=== PATIENT | female | born 1985 | race American Indian/Alaskan Native ===

== ENCOUNTER 2016-12-20 19:33 | Emergency (ER) | payer MEDICAID ==
[2016-12-20 19:58] VITALS: BP 126/84
[2016-12-20] MEDS ORDERED: MOTRIN PO ONE (22:26)
[2016-12-20] MEDS ORDERED: BACTRIM DS PO ONE (22:26)
--- NOTE | 2016-12-20 22:33 | Emergency Department Report ---
- General Chief complaint: Abdominal Pain Stated complaint: BOIL RIGHT ARM Time Seen by Provider: 12/20/16 22:26 Source: patient Mode of arrival: Ambulatory Limitations: No Limitations - History of Present Illness Initial comments: 31-year-old female past medical history recurrent abscesses presents with complaint of approximately 3 days of right-sided axillary abscess. Patient denies fevers or chills. States that the skin in her right armpit is swollen and uncomfortable and she sees a visible abscess head. Patient states she has had abscesses in her groin and buttock region in the past. Denies any other symptoms. No visible drainage as of yet as per patient. MD complaint: abscess/boil Onset/Timin -: days(s) Location: RUE Severity: moderate Severity scale (0 -10): 7 Quality: aching Consistency: constant Improves with: immobilization Associated symptoms: denies other symptoms Treatments Prior to Arrival: none - Related Data Previous Rx's Medication Instructions Recorded Last Taken Type Acetaminophen/Codeine [Tylenol 1 tab PO Q6H PRN #3 tab 12/20/16 Unknown Rx /Codeine # 3 tab] Cephalexin [Keflex] 500 mg PO Q12HR #14 cap 12/20/16 Unknown Rx Ibuprofen [Motrin] 600 mg PO Q8H PRN #30 tablet 12/20/16 Unknown Rx Sulfamethoxazole/Trimethoprim 1 each PO BID #14 tablet 12/20/16 Unknown Rx [Bactrim DS TAB] Allergies Allergy/AdvReac Type Severity Reaction Status Date / Time iodine Allergy Unknown Verified 12/20/16 20:07 Abscess Boil HPI - HPI Chief Complaint: Abdominal Pain Stated Complaint: BOIL RIGHT ARM Time Seen by Provider: 12/20/16 22:26 Home Medications: Previous Rx's Medication Instructions Recorded Last Taken Type Acetaminophen/Codeine [Tylenol 1 tab PO Q6H PRN #3 tab 12/20/16 Unknown Rx /Codeine # 3 tab] Cephalexin [Keflex] 500 mg PO Q12HR #14 cap 12/20/16 Unknown Rx Ibuprofen [Motrin] 600 mg PO Q8H PRN #30 tablet 12/20/16 Unknown Rx Sulfamethoxazole/Trimethoprim 1 each PO BID #14 tablet 12/20/16 Unknown Rx [Bactrim DS TAB] Allergies/Adverse Reactions: Allergies Allergy/AdvReac Type Severity Reaction Status Date / Time iodine Allergy Unknown Verified 12/20/16 20:07 ED Review of Systems ROS: Stated complaint: BOIL RIGHT ARM Other details as noted in HPI Constitutional: denies: chills, fever Eyes: denies: eye pain, eye discharge, vision change ENT: denies: ear pain, throat pain Respiratory: denies: cough, shortness of breath, wheezing Cardiovascular: denies: chest pain, palpitations Endocrine: no symptoms reported Gastrointestinal: denies: abdominal pain, nausea, diarrhea Genitourinary: denies: urgency, dysuria, discharge Musculoskeletal: denies: back pain, joint swelling, arthralgia Skin: denies: rash, lesions Neurological: denies: headache, weakness, paresthesias Psychiatric: denies: anxiety, depression Hematological/Lymphatic: denies: easy bleeding, easy bruising ED Past Medical Hx - Past Medical History Previous Medical History?: Yes Hx Asthma: Yes - Surgical History Additional Surgical History: x2 - Social History Smoking Status: Current Some Day Smoker Substance Use Type: Alcohol - Medications Home Medications: Home Medications Medication Instructions Recorded Confirmed Last Taken Type Acetaminophen/Codeine [Tylenol 1 tab PO Q6H PRN #3 tab 12/20/16 Unknown Rx /Codeine # 3 tab] Cephalexin [Keflex] 500 mg PO Q12HR #14 cap 12/20/16 Unknown Rx Ibuprofen [Motrin] 600 mg PO Q8H PRN #30 tablet 12/20/16 Unknown Rx Sulfamethoxazole/Trimethoprim 1 each PO BID #14 tablet 12/20/16 Unknown Rx [Bactrim DS TAB] ED Physical Exam - General Limitations: No Limitations General appearance: alert, in no apparent distress - Head Head exam: Present: atraumatic, normocephalic - Eye Eye exam: Present: normal appearance, PERRL, EOMI - ENT ENT exam: Present: mucous membranes moist - Neck Neck exam: Present: normal inspection - Respiratory Respiratory exam: Present: normal lung sounds bilaterally. Absent: respiratory distress - Cardiovascular Cardiovascular Exam: Present: regular rate, normal rhythm. Absent: systolic murmur, diastolic murmur, rubs, gallop - GI/Abdominal GI/Abdominal exam: Present: soft, normal bowel sounds - Extremities Exam Extremities exam: Present: normal inspection - Back Exam Back exam: Present: normal inspection - Neurological Exam Neurological exam: Present: alert, oriented X3, CN II-XII intact, normal gait - Psychiatric Psychiatric exam: Present: normal affect, normal mood - Skin Skin exam: Present: warm, dry, intact, normal color. Absent: rash - Expanded Skin Exam Expanded Type of lesion: Present: abscess Distribution of rash: other (right axilla) Description of rash: Present: tenderness, swelling, fluctuant 1 - right axillary abscess w/ some surrounding erythema ED Course Vital Signs 12/20/16 12/20/16 12/20/16 19:54 19:57 20:04 Temperature 98.7 F 98.7 F 98.7 F Pulse Rate 82 82 Respiratory 18 18 19 Rate Blood Pressure 126/84 126/84 Blood Pressure 126/84 [Right] O2 Sat by Pulse 99 99 Oximetry - I & D Right Dermal Type of Procedure: Simple Site: right axilla Blade Size: 11 I & D Procedure: betadine prep, gauze wick placed Progress: Area infiltrated with lidocaine 1% without epinephrine. A stab incision made overlying central fluctuant area of abscess. Moderate amount of purulent drainage approximately 4-5 mL. Wound culture collected and sent. Wound packed with half-inch iodoform gauze approximately 4 inches. minimal bleeding. Procedure tolerated well with minimal pain. ED Medical Decision Making - Medical Decision Making A/P: right axillary abscess 1- motrin 600mg prn 2- Bactrim DS twice a day 7 days, Keflex twice a day 7 days 3- recheck in the ED 48-72 hours 4- wound culture sent Critical care attestation.: If time is entered above; I have spent that time in minutes in the direct care of this critically ill patient, excluding procedure time. ED Disposition Clinical Impression: Abscess of axilla, right Disposition: TO HOME OR SELFCARE Is pt being admited?: No Does the pt Need Aspirin: No Condition: Stable Instructions: Cellulitis (ED), Abscess Incision and Drainage (ED), Acute Wound Care (ED), Abscess (ED) Additional Instructions: Please return to the ED in 48-72 hours for wound check and removal of packing Prescriptions: Acetaminophen/Codeine [Tylenol /Codeine # 3 tab] 1 tab PO Q6H PRN #3 tab PRN Reason: Pain Cephalexin [Keflex] 500 mg PO Q12HR #14 cap Ibuprofen [Motrin] 600 mg PO Q8H PRN #30 tablet PRN Reason: Pain Sulfamethoxazole/Trimethoprim [Bactrim DS TAB] 1 each PO BID #14 tablet Referrals: BONNIE PHELPS MD [Primary Care Provider] - 3-5 Days [facility] [Outside] - 3-5 Days [facility] [Outside] - 3-5 Days Forms: Work/School Release Form(ED) Time of Disposition: 22:34
== END 2016-12-20 22:46 | disposition home or self-care (01) ==
LOC: ED 19:33
DX: L02.411 Cutaneous abscess of right axilla (principal); J45.909 Unspecified asthma, uncomplicated; F17.200 Nicotine dependence, unspecified, uncomplicated; Z88.8 Allergy status to other drugs, medicaments and biological substances
CPT/HCPCS: 87116

== ENCOUNTER 2017-06-07 12:52 | Emergency (ER) | payer MEDICAID ==
[2017-06-07 13:08] VITALS: BP 161/98
[2017-06-07] MEDS ORDERED: DELTASONE ONE (13:08)
[2017-06-07] MEDS ORDERED: BENADRYL PO ONE ×2 (13:09→13:12)
[2017-06-07] MEDS ORDERED: DELTASONE PO ONE (13:12)
== END 2017-06-07 16:29 | disposition left against medical advice (07) ==
LOC: ED 12:52
DX: L29.9 Pruritus, unspecified (principal); Z53.21 Procedure and treatment not carried out due to patient leaving prior to being seen by health care provider
CPT/HCPCS: J7512

== ENCOUNTER 2018-07-22 20:07 | Emergency (ER) | payer MEDICAID, OTHER ==
[2018-07-22] MEDS ORDERED: IBUPROFEN PO ONE ×2 (20:39→20:42)
[2018-07-22] MEDS ORDERED: BOOSTRIX IM ONE (23:23)
[2018-07-22] MEDS ORDERED: KEFLEX PO ONE (23:23)
[2018-07-22] MEDS ORDERED: TRIPLE ANTIBIOTIC TP ONE (23:23)
[2018-07-22] MEDS ORDERED: NORCO 5/325 PO ONE (23:23)
--- NOTE | 2018-07-23 00:15 | Emergency Department Report ---
ED Upper Extremity Inj HPI - General Chief Complaint: Fall Stated Complaint: LT SHOULDER AND HEAD INJURY FROM FALL Time Seen by Provider: 07/22/18 23:22 Source: patient Mode of arrival: Ambulatory Limitations: No Limitations - History of Present Illness Initial Comments: Patient is a 32-year-old female presents for right shoulder pain status post fall from skateboard yesterday now with road rash to right posterior andf lateral shoulder there is no deformity no mild swelling no rom intact MD Complaint: Injury to:: right Onset/Timin -: days(s) Other Extremity Injury: Shoulder: Right Other Injuries: none Handedness: right Place: home Severity scale (0 -10): 5 Improves With: rest Worsens With: movement of extremity Context: fall Associated Symptoms: other (abrasions) - Related Data Previous Rx's Medication Instructions Recorded Last Taken Type Acetaminophen/Codeine [Tylenol 1 tab PO Q6H PRN #3 tab 12/20/16 Unknown Rx /Codeine # 3 tab] Ibuprofen [Motrin] 600 mg PO Q8H PRN #30 tablet 12/20/16 Unknown Rx Sulfamethoxazole/Trimethoprim 1 each PO BID #14 tablet 12/20/16 Unknown Rx [Bactrim DS TAB] cephALEXin [Keflex] 500 mg PO Q12HR #14 cap 12/20/16 Unknown Rx Ibuprofen [Motrin 800 MG tab] 800 mg PO Q8HR PRN #30 tablet 07/23/18 Unknown Rx Mupirocin [Bactroban 2% OINT] 1 applic TP BID 14 Days #1 tube 07/23/18 Unknown Rx cephALEXin [Keflex] 500 mg PO Q8HR 10 Days #30 cap 07/23/18 Unknown Rx Allergies Allergy/AdvReac Type Severity Reaction Status Date / Time iodine Allergy Unknown Verified 12/20/16 20:07 ED Review of Systems ROS: Stated complaint: LT SHOULDER AND HEAD INJURY FROM FALL Other details as noted in HPI Constitutional: denies: chills, fever Eyes: denies: eye pain, eye discharge, vision change ENT: denies: ear pain, throat pain Respiratory: denies: cough, shortness of breath, wheezing Cardiovascular: denies: chest pain, palpitations Endocrine: no symptoms reported Gastrointestinal: denies: abdominal pain, nausea, diarrhea Genitourinary: denies: urgency, dysuria, discharge Musculoskeletal: other (shoulder pain abrasion ) Skin: denies: rash, lesions Neurological: denies: headache, weakness, paresthesias Psychiatric: denies: anxiety, depression Hematological/Lymphatic: as per HPI ED Past Medical Hx - Past Medical History Previous Medical History?: Yes Hx Asthma: Yes - Surgical History Past Surgical History?: Yes Additional Surgical History: x2 - Social History Smoking Status: Never Smoker Substance Use Type: None - Medications Home Medications: Home Medications Medication Instructions Recorded Confirmed Last Taken Type Acetaminophen/Codeine [Tylenol 1 tab PO Q6H PRN #3 tab 12/20/16 Unknown Rx /Codeine # 3 tab] Ibuprofen [Motrin] 600 mg PO Q8H PRN #30 tablet 12/20/16 Unknown Rx Sulfamethoxazole/Trimethoprim 1 each PO BID #14 tablet 12/20/16 Unknown Rx [Bactrim DS TAB] cephALEXin [Keflex] 500 mg PO Q12HR #14 cap 12/20/16 Unknown Rx Ibuprofen [Motrin 800 MG tab] 800 mg PO Q8HR PRN #30 tablet 07/23/18 Unknown Rx Mupirocin [Bactroban 2% OINT] 1 applic TP BID 14 Days #1 tube 07/23/18 Unknown Rx cephALEXin [Keflex] 500 mg PO Q8HR 10 Days #30 cap 07/23/18 Unknown Rx ED Physical Exam - General Limitations: No Limitations General appearance: alert, in no apparent distress - Head Head exam: Present: atraumatic, normocephalic - Eye Eye exam: Present: normal appearance, PERRL, EOMI Pupils: Present: normal accommodation - ENT ENT exam: Present: normal orophraynx, mucous membranes moist, TM's normal bilaterally, normal external ear exam - Neck Neck exam: Present: normal inspection, full ROM. Absent: tenderness, lymphadenopathy, thyromegaly - Respiratory Respiratory exam: Present: normal lung sounds bilaterally. Absent: respiratory distress, wheezes, stridor, chest wall tenderness - Cardiovascular Cardiovascular Exam: Present: regular rate, normal rhythm, normal heart sounds. Absent: systolic murmur, diastolic murmur, rubs, gallop - GI/Abdominal GI/Abdominal exam: Present: soft, normal bowel sounds. Absent: distended, tenderness, bruit, hernia - Rectal Rectal exam: Present: deferred - Extremities Exam Extremities exam: Present: normal inspection, full ROM, tenderness, normal capillary refill. Absent: pedal edema, joint swelling, calf tenderness - Expanded Upper Extremity Exam Right Shoulder Exam: Present: full ROM, tenderness, abrasion, other. Absent: swelling, laceration, ecchymosis, deformity, crepidus, dislocation, erythema, tenderness over AC joint Upper Arm exam: Present: normal inspection, full ROM. Absent: tenderness Elbow exam: Present: normal inspection, full ROM. Absent: tenderness Forearm Wrist exam: Present: normal inspection, full ROM. Absent: tenderness Hand Wrist exam: Present: normal inspection, full ROM. Absent: tenderness Neuro motor exam: Present: wrist extension intact, thumb opposition intact, thumb IP flexion intact, thumb adduction intact, fingers 2-5 abduction intact Neurosensory exam: Present: 2-point discrimination, radial nerve intact, median nerve intact Vascular: Present: normal capillary refill, radial pulse, brachial pulse, ulnar pulse. Absent: pulse deficit radial art, pulse deficit ulnar art, pulse deficit brachial art - Back Exam Back exam: Present: normal inspection, full ROM, tenderness. Absent: CVA tenderness (R), CVA tenderness (L), muscle spasm, rash noted - Neurological Exam Neurological exam: Present: alert, oriented X3, CN II-XII intact, normal gait, reflexes normal. Absent: motor sensory deficit - Expanded Neurological Exam Expanded Patient oriented to: Present: person, place, time Speech: Present: fluid speech Cranial nerves: EOM's Intact: Normal, Gag Reflex: Normal, Tongue Deviation: Normal, Nystagmus: Normal Cerebellar function: Finger to Nose: Normal, Heel to Pugh: Normal, Romberg: Normal Upper motor neuron: Rick Neglect: Normal, Pronator Drift: Normal, Babinski Sign: Normal, Sensory Extinction: Normal Sensory exam: Upper Extremity Light Touch: Normal, Upper Extremity Pin Prick: Normal, Upper Extremity Temperature: Normal, UE 2 Point Discrimination: Normal Motor strength exam: RUE: 5, LUE: 5 Best Eye Response (Angie): (4) open spontaneously Best Motor Response (Angie): (6) obeys commands Best Verbal Response ([place]): (5) oriented [place] Total: 15 - Psychiatric Psychiatric exam: Present: normal affect, normal mood - Skin Skin exam: Present: warm, dry, intact, normal color, abrasion. Absent: rash, ecchymosis ED Course Vital Signs 07/22/18 20:34 Temperature 98.1 F Pulse Rate 83 Respiratory 16 Rate Blood Pressure 111/76 O2 Sat by Pulse 96 Oximetry ED Medical Decision Making - Radiology Data Radiology results: image reviewed no fracture no dislocation, - Medical Decision Making this is a ground level fall with with multple abrasions xray neg for fracture plan mupirocin oint, keflex, nsaids pt given wound care instructions including dressing changes pt will be dc'd to home in stable condition at this time. Critical care attestation.: If time is entered above; I have spent that time in minutes in the direct care of this critically ill patient, excluding procedure time. ED Disposition Clinical Impression: Multiple abrasions Fall Qualifiers: Encounter type: initial encounter Qualified Code(s): W19.XXXA - Unspecified fall, initial encounter Right shoulder strain Qualifiers: Encounter type: initial encounter Qualified Code(s): S46.911A - Strain of unspecified muscle, fascia and tendon at shoulder and upper arm level, right arm, initial encounter Disposition: DC-01 TO HOME OR SELFCARE Is pt being admited?: No Does the pt Need Aspirin: No Condition: Stable Instructions: Abrasion (ED), Shoulder Sprain (ED) Prescriptions: Mupirocin [Bactroban 2% OINT] 1 applic TP BID 14 Days #1 tube cephALEXin [Keflex] 500 mg PO Q8HR 10 Days #30 cap Ibuprofen [Motrin 800 MG tab] 800 mg PO Q8HR PRN #30 tablet PRN Reason: pain Referrals: [facility] [Outside] - 3-5 Days Forms: Work/School Release Form(ED) Time of Disposition: 00:24
--- NOTE | 2018-07-23 00:41 | XRay Report ---
PROCEDURE: Right shoulder. TECHNIQUE: 3 views. HISTORY: Patient fell, right shoulder pain. COMPARISONS: None. FINDINGS: The bones appear intact without fracture or dislocation. The joint spaces appear normal. The soft tis sues are unremarkable. IMPRESSION: Normal study. This document is electronically signed by Eriberto Valles MD., July 23 2018 12:39:38 AM ET
[2018-07-23 01:06] VITALS: BP 120/78
== END 2018-07-23 00:39 | disposition home or self-care (01) ==
LOC: ED 20:07
DX: S46.911A Strain of unspecified muscle, fascia and tendon at shoulder and upper arm level, right arm, initial encounter (principal); S90.511A Abrasion, right ankle, initial encounter; S20.411A Abrasion of right back wall of thorax, initial encounter; J45.909 Unspecified asthma, uncomplicated; Z98.890 Other specified postprocedural states; Z91.041 Radiographic dye allergy status; V00.131A Fall from skateboard, initial encounter; Y93.89 Activity, other specified; Y92.009 Unspecified place in unspecified non-institutional (private) residence as the place of occurrence of the external cause; Y99.8 Other external cause status
CPT/HCPCS: 90471; 90715; A6250

== ENCOUNTER 2021-07-22 07:09 | Emergency (ER) | payer SELFPAY ==
[2021-07-22 07:30] VITALS: BP 123/64
== END 2021-07-22 23:23 | disposition left against medical advice (07) ==
LOC: ED 07:09
DX: M25.512 Pain in left shoulder (principal); Z53.21 Procedure and treatment not carried out due to patient leaving prior to being seen by health care provider